=== PATIENT | female | born 1980 | race Caucasian/White ===

== ENCOUNTER 2021-01-01 18:14 | Emergency (ER) | payer BC, MEDICAID, SELFPAY ==
--- NOTE | 2021-01-01 18:23 | ED.SKABFB ---
HPI - Skin/Abscess/Foreign Bdy General Chief complaint: Unspecified Stated complaint: Mouth Pain History of Present Illness HPI narrative: This is a 40-year-old that comes in complaining of giving oral sex yesterday states that her tongue hurts and that she has white patches and sores on her lips. Patient is having bizarre behavior where she is pulling and grabbing at her lips sticking her tongue out and grabbing on herself in inappropriate ways. Patient denied having intercourse with any of the other men Related Data Home Medications Medication Instructions Recorded Confirmed ziprasidone HCl 01/01/21 Allergies Allergy/AdvReac Type Severity Reaction Status Date / Time aripiprazole [From Abilify] Allergy Anaphylactic Verified 01/01/21 20:12 Shock Review of Systems Review of Systems: CONSTITUTIONAL: Denies fever, chills, or sweats. EYES: Denies visual changes, redness, or discharge. ENT: Denies rhinorrhea, congestion, sore throat, or otalgia. Complains of tongue pain, sores, dry mouth CARDIOVASCULAR:Denies chest pain, palpitations, or edema. RESPIRATORY: Denies cough or dyspnea. GASTROINTESTINAL: Denies abdominal pain, nausea, vomiting, or diarrhea. GENITOURINARY: Denies dysuria or hematuria. SKIN:Denies rash or itching. MUSCULOSKELETAL:Denies back pain, joint pain, or myalgia. NEUROLOGIC: Denies headache, numbness, or weakness. PSYCHIATRIC:Denies anxiety or depression PMFSH Comments At time as signature, I have reviewed and agree with nursing past medical, social, surgical and family history. Please see nursing chart for further information. There is no relevant family history pertinent to the presenting complaint. Exam Narrative: GENERAL:Well-appearing, well-nourished, and in no acute distress. HEAD:Normocephalic EYES: PERRLA and EOMI. ENT: Nares clear, no rhinorrhea or epistaxis. Mucous membranes moist. Tongue is pink some saliva noted that is white no sores or lesions noted at this time NECK: Supple. CHEST: Clear to auscultation. No respiratory distress. HEART: Regular rate and rhythm Normal peripheral pulses. ABDOMEN: Soft, nontender, nondistended, normal active bowel sounds. EXTREMITIES: Normal range of motion. No edema. SKIN: Warm, dry, no rash. NEURO: No focal deficits. Alert and oriented x3. Course DIRECTOR OF ONCOLOGY/PA Physician Supervision Discussion with patient about oral sex she is concerned about having syphilis and would like to be tested we will give her information for STD clinic to test her patient is requesting to go to emergency room at this time I do not feel like this is emergent due to oral sex was yesterday. Will treat with Rocephin and azithromycin Vital Signs Vital signs: Vital Signs Temperature 98.3 F 01/01/21 18:29 Pulse Rate 113 H 01/01/21 18:29 Respiratory Rate 18 01/01/21 18:29 Blood Pressure 139/76 01/01/21 18:29 Pulse Oximetry 100 01/01/21 18:29 Temperature 98.3 F 01/01/21 18:29 Pulse Rate 113 H 01/01/21 18:29 Respiratory Rate 18 01/01/21 18:29 Blood Pressure 139/76 01/01/21 18:29 Pulse Oximetry 100 01/01/21 18:29 MDM - Skin/Abscess/Foreign Bdy Differential Diagnosis Differential diagnosis: Likely urticaria, herpes zoster and other (STI) Discharge Plan Discharge Clinical Impression: STI (sexually transmitted infection), Oral aphthous ulcer Patient Disposition: Home, Self-Care Condition: Stable Instructions: Antibiotic Form, Chlamydia (ED), Sexually Transmitted Diseases (ED), Safe Sex Practices (ED), Gonorrhea (ED), Trichomoniasis (ED), Female Condom Use (ED) Additional Instructions: We will give you a list of STD Clinics Avoid oral sex with any other men at this time. Rinse your mouth with mouth wash Tylenol and Ibuprofen for pain and or fever. There is no need to go to the emergency room for more STI testing since we have treated you today. Prescriptions: New nystatin 100,000 unit/mL suspension 5 ml PO QID 7 Day
[2021-01-01 18:29] VITALS: BP 139/76; PULSE 113; RESP 18; TEMP 36.8; O2SAT 100
[2021-01-01] MEDS: AZITHROMYCIN 250 MG TABLET 1000 MG PO (20:10)
--- NOTE | 2021-01-01 20:12 | PC.NURSE ---
rocephin 500mg was not able to get pulled out of med. pyxis with attempt to use the 250mg vial. tie binder aware and vorb rocephin 500mg with use of 1 gram vial and 2.1 lidocaine and to give 1.4ml for 500mg of rocephin.
== END 2021-01-01 20:30 | disposition home or self-care (01) ==
PROVIDERS: Emergency Provider Nurse Practitioner Family
DX: A64 Unspecified sexually transmitted disease (principal); K12.0 Recurrent oral aphthae
CPT/HCPCS: 87070; 96372; 99213; A9270; G0463; J0696

== ENCOUNTER 2021-08-09 11:46 | Emergency (ER) | payer OTHER, SELFPAY ==
--- NOTE | ~2021-08-09 | XR_ITS ---
EXAMINATION: XR facial bones min 3V DATE: 08/09/2021 12:56 INDICATION: Nose and mouth pain. TECHNIQUE: 4 views of the facial bones were obtained. COMPARISON: Maxillofacial CT 06/17/14 FINDINGS: Bone alignment is normal. No fracture. IMPRESSION: 1. No fracture. Reviewed, dictated and finalized at location A. NCIAL SERVICES DIRECTOR IMPRESSION: 1. No fracture.
[2021-08-09 11:57] VITALS: BP 127/79; PULSE 77; RESP 16; TEMP 35.6; O2SAT 100
[2021-08-09 12:14] VITALS: BP 127/79; PULSE 77; RESP 16; TEMP 35.6; O2SAT 100
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
== END 2021-08-09 13:11 | disposition home or self-care (01) ==
PROVIDERS: Emergency Provider Nurse Practitioner
DX: S09.93XA Unspecified injury of face, initial encounter (principal); W22.8XXA Striking against or struck by other objects, initial encounter
CPT/HCPCS: 70150; 99213; G0463

== ENCOUNTER 2022-03-16 14:55 | Emergency (ER) | payer OTHER, SELFPAY ==
[2022-03-16 15:06] VITALS: BP 110/95; PULSE 115; RESP 18; TEMP 36.8; O2SAT 99
--- NOTE | 2022-03-16 15:12 | ED.URI ---
HPI - URI/Sore Throat General Chief Complaint: Upper Respiratory Infection Stated Complaint: Sore Throat,Fever Time Seen by Provider: 03/16/22 15:37 Source: patient and RN notes reviewed Mode of arrival: ambulatory Limitations: no limitations History of Present Illness HPI Narrative: 41-year-old female presents return for 2-day history of sore throat, sinus congestion, drainage, pain with swallowing, intermittent fever. Reports she is taking ibuprofen and aspirin. She is concerned for strep. MD elicited complaint: fever, sore throat and nasal congestion Related Data Home Medications Medication Instructions Recorded Confirmed No Home Medications 03/16/22 03/16/22 Allergies Allergy/AdvReac Type Severity Reaction Status Date / Time aripiprazole [From Abilify] Allergy Anaphylactic Verified 03/16/22 14:58 Shock Review of Systems Review of Systems: CONSTITUTIONAL: Reports malaise, fever. EYES: Denies visual changes, redness, or discharge. ENT: Reports rhinorrhea, congestion, and sore throat. Denies sinus pain, otalgia CARDIOVASCULAR: Denies chest pain, palpitations, or edema. RESPIRATORY: Reports cough. Denies dyspnea. GASTROINTESTINAL: Denies abdominal pain, nausea, vomiting, diarrhea SKIN: Denies rash or itching. MUSCULOSKELETAL: Denies myalgia. NEUROLOGIC: Denies headache. All systems reviewed & are unremarkable except as noted in HPI and below PMFSH Past Medical History Medical History HSV (herpes simplex virus) infection Social History Social History (Updated 08/09/21 @ 12:57 by Olga Dalton, LORIE) Smoking status: Never smoker Alcohol intake: current Comments At time of signature, agree with nursing past medical, surgical, social and family history. There is no relevant family history pertinent to the presenting complaint Exam Narrative: GENERAL: Nontoxic appearing and in no acute distress. HEAD: Normocephalic EYES: PERRLA, conjunctivae clear ENT: Nares clear, clear discharge. Mucous membranes moist. TM pearly velasquez with dull light reflex bilaterally; no tragal tenderness. Oropharynx erythematous without lesions. Tonsils not enlarged and without exudate, no drooling, no hoarseness, no trismus, uvula midline. NECK: Supple. No lymphadenopathy CHEST: Clear to auscultation, breath sounds equal. No wheezing, rhonchi, rales, or stridor. No respiratory distress, speaks in full sentences. HEART: Regular rate and rhythm. No murmur heard. SKIN: Warm, dry, no rash. NEURO: Alert and oriented x3. PSYCH: Normal mood and affect Course Course Emergency Course: Patient is aware of diagnosis, understands and agrees to treatment plan. Anticipatory guidance given. Patient agrees to follow-up as directed and is aware of reasons to seek care at the emergency department. Portions of this record may have been created with voice recognition software Level of Care: Express Care Visit Vital Signs Vital signs: Vital Signs Temperature 98.2 F 03/16/22 15:06 Pulse Rate 115 H 03/16/22 15:06 Respiratory Rate 18 03/16/22 15:06 Blood Pressure 110/95 H 03/16/22 15:06 Pulse Oximetry 99 03/16/22 15:06 Oxygen Delivery Room Air 03/16/22 15:06 Temperature 98.2 F 03/16/22 15:06 Pulse Rate 115 H 03/16/22 15:06 Respiratory Rate 18 03/16/22 15:06 Blood Pressure 110/95 H 03/16/22 15:06 Pulse Oximetry 99 03/16/22 15:06 Oxygen Delivery Room Air 03/16/22 15:06 Reviewed. MDM - URI/Sore Throat MDM Narrative Medical decision making narrative: Differential diagnosis considered: Edwards virus, strep pharyngitis, allergic rhinitis, upper respiratory tract infection, sinusitis, rhinosinusitis, nasopharyngitis. viral pharyngitis, otitis media, otitis externa, pneumonia, bronchitis, viral cough syndrome, viral syndrome, and influenza. Exam findings show no acute concerns or changes; patient is non-toxic appearing and is in no distress.
== END 2022-03-16 15:53 | disposition home or self-care (01) ==
PROVIDERS: Emergency Provider Nurse Practitioner
DX: U07.1 COVID-19 (principal)
CPT/HCPCS: 87081; 87426; 87804; 87880; 99213; C9803; G0463